=== PATIENT | male | born 1950 ===

== ENCOUNTER 2017-05-13 11:47 | Emergency (ER) | payer MEDICARE ==
[2017-05-13 11:47] VITALS: BMI 21.3
[2017-05-13 11:54] VITALS: BP 173/98; PULSE 103; RESP 18; TEMP 98.1; O2SAT 99
[2017-05-13] MEDS ORDERED: Lidocaine 1% Inj (20ml) INFIL STA (12:07)
[2017-05-13] MEDS ORDERED: Bacitracin 500 Units/gm Oint Foilpak UD ONE (12:11)
[2017-05-13] MEDS ORDERED: Lidocaine 2% Inj (20ml) ONE (12:11)
[2017-05-13] MEDS ORDERED: Tetanus/Diphtheria Toxoids 0.5 ml Syringe IM ONE ×2 (12:13→12:39)
[2017-05-13] MEDS ORDERED: Tdap Vaccine 0.5 ml Vial (10-64 yrs) IM ONE (12:24)
[2017-05-13] MEDS ORDERED: Bacitracin 500 Units/gm Oint Foilpak UD TOP ONE (12:24)
--- NOTE | 2017-05-13 12:24 | C.PDOC ---
History Of Present Illness 66 y/o male presents to the emergency room for evaluation of hand laceration sustained today. Patient was cutting chicken at home and sustained a laceration to the left palm, between the 2nd and 3rd fingers. No numbness or tingling. Patient is able to make a fist and move all digits. PMD: Harry Starr Time Seen by Provider: 05/13/17 12:01 Chief Complaint (Nursing): Abnormal Skin Integrity History Per: Patient History/Exam Limitations: no limitations Onset/Duration Of Symptoms: Hrs Current Symptoms Are (Timing): Still Present Past Medical History Reviewed: Historical Data, Nursing Documentation, Vital Signs Vital Signs: Last Vital Signs Temp 98.1 F 05/13/17 11:52 Pulse 103 H 05/13/17 11:52 Resp 18 05/13/17 11:52 BP 173/98 H 05/13/17 11:52 Pulse Ox 99 05/13/17 12:25 - Medical History PMH: Anemia, Arthritis (left hip), Diabetes (NIDDM), Diverticulitis, Gastritis, HTN, Hypercholesterolemia, Malignancy (Pancreatic), Pancreatitis (CANCER) Denies: HIV, Chronic Kidney Disease Surgical History: Cholecystectomy, Endoscopy Denies: Pacemaker - [facility] Procedures ESOPHAGOGASTRODUODENOSCOPY [EGD] W/CLOSED BIOPSY (12/02/13) EXCISION OF DUODENUM, ENDO, DIAGN (12/07/14) EXCISION OF PANCREAS, PERCUTANEOUS APPROACH, DIAGNOSTIC (12/07/14) EXCISION OF STOMACH, ENDO, DIAGN (12/07/14) PACKED CELL TRANSFUSION (08/11/14) ULTRASONOGRAPHY OF PANCREAS (12/07/14) Family History: States: Unknown Family Hx - Social History Hx Tobacco Use: No Hx Alcohol Use: No Hx Substance Use: No - Immunization History Hx Tetanus Toxoid Vaccination: No Hx Influenza Vaccination: No Hx Pneumococcal Vaccination: Yes Review Of Systems Except As Marked, All Systems Reviewed And Found Negative. Skin: Positive for: Lesions (to left hand) Neurological: Negative for: Weakness, Numbness (and tingling) Physical Exam - Physical Exam Appears: Non-toxic, No Acute Distress Skin: Normal Color, Warm, Dry Extremity: Normal ROM (with full flexion and extension of all digits), Capillary Refill (< 2 sec), Other (2 cm angulated laceration to the dorsal surface of left hand between the 2nd and 3rd digits, at the MCP. No active bleeding) Pulses: Left Radial: Normal, Right Radial: Normal Neurological/Psych: Oriented x3, Normal Speech, Normal Motor, Normal Sensation ED Course And Treatment O2 Sat by Pulse Oximetry: 99 (RA) Pulse Ox Interpretation: Normal Laceration - Laceration Repair left hand Wound Length (In cm): 2 Description Of Wound: Linear (but angulated) Wound Cleansed With: Sterile Saline Anesthesia: Lidocaine 2% Wound Examination: Irrigated With Saline, No FB With Wound Exploration Wound Closure: Suture (x3) Suture Technique And Material Used: Nylon (4:0) Wound Complexity: Simple Medical Decision Making Medical Decision Making: Impression: 2 cm laceration of left hand Time: 12:24 Initial Plan: * Tetanus vaccine given * Lidocaine 1% ordered for lac repair Laceration repaired without difficulty. Wound care instructions provided. Pt stable for d/c home and advised to follow up for suture removal in 7 days Disposition Doctor Will See Patient In The: Office Counseled Patient/Family Regarding: Studies Performed, Diagnosis - Disposition Referrals: Harry Starr MD [Staff Provider] - Disposition: HOME/ ROUTINE Disposition Time: 12:24 Condition: GOOD Additional Instructions: Llava con jabon y agua diario un poquito de Bacitracin Inguento encima de la herida Sigue con [place] medico, sacar los puntos en 7 hurst ([place] que viene) Recebio' [place] injeccion' anti-titanico hoy. Instructions: Laceration Repair With Stitches (DC) Forms: [facility] (Greenlandic) Print Language: TAMAZIGHT - POA Present On Arrival: None - Clinical Impression Clinical Impression: Hand laceration - Scribe Statement The provider has reviewed the documentation as recorded by the Scribe Elizabeth Celestin Provider Attestation: All medical record entries made by the Scribe were at my direction and personally dictated by me. I have reviewed the chart and agree that the record accurately reflects my personal performance of the history, physical exam, medical decision making, and the department course for this patient. I have also personally directed, reviewed, and agree with the discharge instructions and disposition.
== END 2017-05-13 12:53 | disposition home or self-care (01) ==
LOC: C.ER 11:47
DX: S61.412A Laceration without foreign body of left hand, initial encounter (principal); W45.8XXA Other foreign body or object entering through skin, initial encounter; Z23 Encounter for immunization; E11.9 Type 2 diabetes mellitus without complications; E78.00 Pure hypercholesterolemia, unspecified; I10 Essential (primary) hypertension

== ENCOUNTER 2017-09-06 20:46 | Emergency (ER) | payer MEDICARE ==
[2017-09-06 20:46] VITALS: BMI 21.3
[2017-09-06] MEDS ORDERED: Sodium Chloride 0.9% 1,000 ML IV ONE (21:04)
--- NOTE | 2017-09-06 21:09 | C.PDOC ---
History Of Present Illness 66 year old male with PMHx of neuroendocrine tumor, pancreas CA presents to the ED c/o abdominal pain that has been worsening for the past 2 days. Patient reports vomiting associated with his pain. Patient denies fever, chills, nausea , diarrhea, other complaints. Time Seen by Provider: 09/06/17 20:58 Chief Complaint (Nursing): Abdominal Pain History Per: Patient History/Exam Limitations: no limitations Onset/Duration Of Symptoms: Days (2) Current Symptoms Are (Timing): Still Present Location Of Pain/Discomfort: Diffuse Radiation Of Pain To:: None Quality Of Discomfort: "Pain" Associated Symptoms: Vomiting Exacerbating Factors: None Alleviating Factors: None Recent travel outside of the [place]: No Additional History Per: Patient Past Medical History Reviewed: Historical Data, Nursing Documentation, Vital Signs Vital Signs: Last Vital Signs Temp 98.0 F 09/06/17 23:12 Pulse 78 09/06/17 23:12 Resp 18 09/06/17 23:12 BP 159/83 H 09/06/17 23:12 Pulse Ox 100 09/06/17 23:12 - Medical History PMH: Anemia, Arthritis (left hip), Diabetes (NIDDM), Diverticulitis, Gastritis, HTN, Hypercholesterolemia, Malignancy (Pancreatic), Pancreatitis (CANCER) Denies: HIV, Chronic Kidney Disease Other PMH: neuroendocrine tumor Surgical History: Cholecystectomy, Endoscopy Denies: Pacemaker - [facility] Procedures ESOPHAGOGASTRODUODENOSCOPY [EGD] W/CLOSED BIOPSY (12/02/13) EXCISION OF DUODENUM, ENDO, DIAGN (12/07/14) EXCISION OF PANCREAS, PERCUTANEOUS APPROACH, DIAGNOSTIC (12/07/14) EXCISION OF STOMACH, ENDO, DIAGN (12/07/14) PACKED CELL TRANSFUSION (08/11/14) ULTRASONOGRAPHY OF PANCREAS (12/07/14) Family History: States: Unknown Family Hx - Social History Hx Tobacco Use: No Hx Alcohol Use: No Hx Substance Use: No - Immunization History Hx Tetanus Toxoid Vaccination: No Hx Influenza Vaccination: No Hx Pneumococcal Vaccination: Yes Review Of Systems Except As Marked, All Systems Reviewed And Found Negative. Gastrointestinal: Positive for: Vomiting, Abdominal Pain Physical Exam - Physical Exam Appears: Non-toxic, No Acute Distress Skin: Normal Color, Warm, Dry Head: Atraumatic, Normacephalic Eye(s): bilateral: Normal Inspection Oral Mucosa: Moist Neck: Normal ROM, Supple Chest: Symmetrical Cardiovascular: Rhythm Regular Respiratory: Normal Breath Sounds, No Rales, No Rhonchi, No Wheezing Gastrointestinal/Abdominal: Soft, Tenderness, No Guarding, No Rebound Extremity: Normal ROM, No Tenderness, No Swelling Neurological/Psych: Oriented x3, Normal Speech Gait: Steady ED Course And Treatment - Laboratory Results Result Diagrams: 09/06/17 21:22 09/06/17 21:22 O2 Sat by Pulse Oximetry: 96 (ON RA) Pulse Ox Interpretation: Normal Medical Decision Making Medical Decision Making: impression: abdominal pain Plan; * Labs * Moprhine 4 mg IVP * IV fluids * Zofran 4 mg IVP * UA labs unremarkable. ct shows ?mild colitis- no wbc count no diarrhea. no pancreatic mass on non contrast study.pt observed innnad. Disposition - Disposition Referrals: [facility] [Outside] [facility] [Outside] Noman Farrar MD [Staff Provider] - Disposition: HOME/ ROUTINE Disposition Time: 23:00 Condition: GOOD Additional Instructions: please follow up with your doctor/specialist. return to er with worsening symptoms or concerns. Instructions: Acute Abdomen (Belly Pain) Forms: [facility] (Citizen [place]) - Clinical Impression Clinical Impression: Abdominal pain - Scribe Statement The provider has reviewed the documentation as recorded by the Scribe Vickey Alas All medical record entries made by the Scribe were at my direction and personally dictated by me. I have reviewed the chart and agree that the record accurately reflects my personal performance of the history, physical exam, medical decision making, and the department course for this patient. I have also personally directed, reviewed, and agree with the discharge instructions and disposition.
[2017-09-06 21:26] LABS: BASO # 0.1 K/uL (0.0-0.2); BASO % 0.7 % (0.0-2.0); EOS # 0.1 K/uL (0.0-0.7); EOS % 1.1 % (0.0-4.0); LYMPH % 10.3 % (20.0-40.0); MEAN CELL VOLUME 81.8 fL (80.0-94.0); MEAN CORPUSCULAR HEMOGLOBIN 26.1 pg (27.0-31.0); MEAN CORPUSCULAR HGB CONC 31.9 g/dL (33.0-37.0); MEAN PLATELET VOLUME 8.3 fL (7.2-11.7); MONO # 0.7 K/uL (0.0-0.8); MONO % 7.3 % (0.0-10.0); NEUT # 7.9 K/uL (1.8-7.0); NEUT % 80.6 % (50.0-75.0); NRBC % 0.1 % (0.0-2.0); RBC 5.07 Mil/uL (4.40-5.90); RED CELL DISTRIBUTION WIDTH 21.1 % (11.5-14.5)
[2017-09-06 21:27] LABS: HEMOGLOBIN 13.2 g/dL (12.0-18.0); WHITE BLOOD COUNT 9.8 K/uL (4.8-10.8)
[2017-09-06] MEDS ORDERED: Sodium Chloride 0.9% 1,000 ML ONE (21:32)
[2017-09-06] MEDS ORDERED: Morphine 4 MG/ML VIAL ONE (21:32)
[2017-09-06 21:38] LABS: ALBUMIN 4.1 g/dL (3.5-5.0); BILIRUBIN,DIRECT 0.3 mg/dL (0.0-0.4); CALCIUM 9.2 mg/dl (8.6-10.4)
[2017-09-06 21:39] LABS: INR 1.1; PROTHROMBIN TIME 11.6 SECONDS (9.7-12.2)
[2017-09-06 23:03] LABS: SQUAMOUS EPITHIAL < 1 /hpf (0-5); URINE BILIRUBIN NEGATIVE (NEGATIVE); URINE BLOOD NEGATIVE (NEGATIVE); URINE CLARITY Clear (Clear); URINE COLOR Straw (YELLOW); URINE GLUCOSE (UA) NORMAL (Normal); URINE LEUKOCYTE ESTERASE NEG Leu/uL (Negative); URINE PROTEIN 1+ mg/dL (NEGATIVE); URINE UROBILINOGEN NORMAL mg/dL (0.2-1.0)
[2017-09-06 23:13] VITALS: BP 159/83; PULSE 78; RESP 18; TEMP 98
--- NOTE | 2017-09-07 12:45 | CT ---
PROCEDURE: CT abdomen pelvis HISTORY: Upper abd pain h/o of pancreatic ca COMPARISON: Comparison made with CT scan abdomen pelvis 10/26/2015 TECHNIQUE: Contiguous helical/transaxial images of the abdomen and pelvis. Oral contrast was administered. No IV contrast given. Coronal and Sagittal reformats generated. Radiation dose: Total exam DLP = 271.2 mGy-cm. This CT exam was performed using one or more of the following dose reduction techniques: Automated exposure control, adjustment of the mA and/or kV according to patient size, and/or use of iterative reconstruction technique. . FINDINGS: LOWER THORAX: Heart size normal. Small pericardial effusion. Small hiatal hernia with slight wall thickening of distal esophagus likely due to protrusion of gastric mucosa. Mild atelectasis and or scarring changes left lung base. The previously noted ground-glass opacities both lower lung gil of resolved. No evidence of basilar pneumothorax. Previously noted small nodular density right lung base resolved LIVER: Small sub cm enhancing focus anterior superior left lobe liver not appreciated on this exam due to the lack of circulating intravenous contrast material. This probably represented a small hemangioma prior exam GALLBLADDER AND BILE DUCTS: Cholecystectomy . Dilated common bile duct likely due to post cholecystectomy state and advanced age. PANCREAS: Unremarkable. No mass. No ductal dilatation. SPLEEN: Unremarkable. No splenomegaly. ADRENALS: Minor nodular appearing enlargement left adrenal gland. KIDNEYS AND URETERS: Kidneys demonstrate symmetric size. No evidence of nephrolithiasis or hydronephrosis. BLADDER: Urinary bladder incompletely distended which presumably accounts slight thick-walled appearance. Muscular hypertrophy may contribute. REPRODUCTIVE: Unremarkable. APPENDIX: Normal appendix BOWEL: Evaluation of the bowel is limited due to the lack of oral contrast material. The stomach is collapsed. . Visualized loops of small bowel exhibit normal contour and caliber. No evidence acute mechanical small bowel obstruction. There is wall thickening of the the distal sigmoid and rectum with trace infiltration in the perirectal mesenteric. Findings are nonspecific though could represent a inflammatory process. Colonoscopy recommended to exclude other invasive wall lesion. . Few scattered colonic diverticula seen along the distal descending/sigmoid colon junction. Show PERITONEUM: Again seen is a round/elliptical shaped mass within the the mid abdomen just inferior to the pancreatic body and medial to the pancreatic head abutting abdominal aorta best seen on axial image number series 3 axial image number 63 of. This mass measures approximately 2.8 x 2.2 cm so far as can be determined without the benefit of intravenous contrast material as well uncertain etiology however neoplasm of must be excluded. Re- demonstrated are two small elliptical shaped structures within the anterior mesenteric the right mid pelvis that exhibit fatty centers N ring-like densities. Findings are of uncertain etiology though could represent localized mesenteric lipomas unchanged from prior exam LYMPH NODES: Unremarkable. No enlarged lymph nodes. VASCULATURE: Unremarkable. No aortic aneurysm. BONES: Mild multilevel degenerative spondylosis of the lower thoracic and lumbar spine. Moderate degenerative osteoarthritis left hip joint. OTHER FINDINGS: None. IMPRESSION: Cholecystectomy. Dilatation common bile duct as above. Re- demonstrated is a mass lesion within the left parasagittal upper to mid abdomen abutting the abdominal aorta which measures 2.8 x 2.2 cm of uncertain etiology however possibility of neoplasm not excluded. Clinical correlation recommended. See above discussion for additional details. Mild wall thickening of the sigmoid and rectum possibly due to inflammation however the possibility of other intrinsic/invasive wall lesion not excluded. Follow-up colonoscopy recommended. Rule below Degenerative osteoarthritis left hip. See above discussion for additional details and findings. Note that this report was placed in PA review folder for followup.
[2017-09-07 13:22] VITALS: O2SAT 96
== END 2017-09-06 23:14 | disposition home or self-care (01) ==
LOC: C.ER 20:46
DX: R10.9 Unspecified abdominal pain (principal); I10 Essential (primary) hypertension; E11.9 Type 2 diabetes mellitus without complications; C7A.8 Other malignant neuroendocrine tumors; Z87.891 Personal history of nicotine dependence
CPT/HCPCS: 74176; 80053; 81001; 82248; 83690; 85025; 85610; 85730; 96361; 96374; 96375; 99284; J2270; J2405; J7030